=== PATIENT | female | born 1960 | race Caucasian/White ===

== ENCOUNTER → 2018-06-04 | Outpatient (CLI) | payer BC | LOC: WSPT 05-06 08:45 → MC.RAD 05-16 16:00 | DX: Z13.21 Encounter for screening for nutritional disorder (principal) ==

== ENCOUNTER 2018-07-08 08:00 | Outpatient (RCR) | payer BC | END 2018-07-30 | disposition home or self-care (01) | LOC: WSPT | DX: M54.12 Radiculopathy, cervical region (principal); M25.511 Pain in right shoulder; M54.2 Cervicalgia | CPT/HCPCS: G0283-GP ==

== ENCOUNTER → 2022-11-07 | Outpatient (CLI) | payer BC | LOC: MC.RAD 11:19 | DX: Z12.31 Encounter for screening mammogram for malignant neoplasm of breast (principal) ==